=== PATIENT | male | born 1960 | race Caucasian/White ===

== ENCOUNTER → 2016-10-18 | Outpatient (CLI) | payer BC ==
--- NOTE | 2016-10-18 10:57 | US ---
EXAMINATION TYPE: US liver DATE OF EXAM: 10/18/2016 COMPARISON: NONE CLINICAL HISTORY: Other Specified disease of Liver K76.89. EXAM MEASUREMENTS: Liver Length: 14.9 cm Gallbladder Wall: 0.2 cm CBD: 0.4 cm Right Kidney: 10.9 x 3.9 x 5.2 cm Pancreas: visualized portions wnl Liver: difficult to penetrate Gallbladder: no stones seen Evidence for sonographic Betancourt's sign: No CBD: wnl Right Kidney: No hydronephrosis or masses seen Visualized liver is heterogeneously hyperechoic. No intrahepatic ductal dilatation is seen. Evaluatio n for focal masses is suboptimal due to the heterogeneity. IMPRESSION: Heterogeneous hyperechoic appearance of liver could reflect diffuse fatty infiltration, u nderlying hepatocellular disease is not excluded. Imaging guided random biopsy for tissue analysis ca n be performed if desired.
== END | disposition home or self-care (01) ==
LOC: RADUSWWP 10:18
PROVIDERS: ATTEND Family Medicine
DX: R93.2 Abnormal findings on diagnostic imaging of liver and biliary tract (principal); K76.89 Other specified diseases of liver
CPT/HCPCS: 76705

== ENCOUNTER 2016-12-14 18:47 | Emergency (ER) | payer BC ==
--- NOTE | 2016-12-14 20:49 | XR ---
EXAMINATION TYPE: XR soft tissue neck DATE OF EXAM: 12/14/2016 COMPARISON: NONE HISTORY: r/o foreign body TECHNIQUE: 2 views of the soft tissues of the neck are submitted. FINDINGS: The airway is patent. Normal appearing epiglottis. Retropharyngeal soft tissues are withi n normal limits. No evidence for radiopaque foreign body. IMPRESSION: Negative study
--- NOTE | 2016-12-14 21:06 | ED ---
General Adult HPI - General Chief complaint: ENT Stated complaint: FB IN THROAT (VITAMIN) Time Seen by Provider: 12/14/16 20:30 Source: patient, RN notes reviewed Mode of arrival: ambulatory Limitations: no limitations - History of Present Illness Initial comments: This is a 56-year-old male who presents to the emergency department today with chief complaint of feeling a foreign body in throat. Patient reports he took his medications this morning around 5 AM, one of them including a large multivitamin. Patient states he felt like the vitamin became lodged in his throat. On the way to work he stopped and got [employer] and was able to drink and eat as normal. Patient reports that throughout the day he felt like the vitamin was "moving around" in his throat. He has been able to eat and drink normally throughout the entire day. Denies fever, chills, chest pain, shortness of breath, abdominal pain, nausea, vomiting, dysuria, hematuria, numbess, tingling, headache or vision changes. - Related Data Allergies Allergy/AdvReac Type Severity Reaction Status Date / Time tetanus and diphtheria Allergy Unknown Verified 12/14/16 19:18 toxoids Review of Systems ROS Statement: Those systems with pertinent positive or pertinent negative responses have been documented in the HPI. ROS Other: All systems not noted in ROS Statement are negative. Past Medical History Past Medical History: Asthma, GERD/Reflux, Hypertension, Memory Impairment, Sleep Apnea/CPAP/BIPAP History of Any Multi-Drug Resistant Organisms: None Reported Past Surgical History: Orthopedic Surgery Additional Past Surgical History / Comment(s): right shoulder, left knee, uvula removed Past Psychological History: ADD/ADHD, Depression Smoking Status: Current some day smoker Past Alcohol Use History: None Reported Past Drug Use History: None Reported General Exam - General Exam Comments Initial Comments: General: Awake and alert, well-developed; in no apparent distress. HEENT: Head atraumatic, normocephalic. Pupils are equal, round and reactive to light. Extraocular movements intact. Oropharynx moist without erythema or exudate. No foreign body visualized in posterior pharynx. Uvula is surgically absent. Neck: Supple. Normal ROM. No adenopathy. Cardiovascular: Regular rate and rhythm. No murmurs, rubs or gallops. Chest symmetrical. Respiratory: Lungs clear to auscultation bilaterally. No wheezes, rales or rhonchi. Normal respiratory effort with no use of accessory muscles. Skin: [place], warm and dry without rashes or lesions. Neurological: Alert and oriented x3. CN II-XII grossly intact. Speech is fluent and answers are appropriate. No focal neuro deficits. Psychiatric: Normal mood and affect. No overt signs of depression or anxiety noted. Limitations: no limitations Course Vital Signs 12/14/16 12/14/16 19:14 21:39 Temperature 98 F 98.0 F Pulse Rate 87 82 Respiratory 20 18 Rate Blood Pressure 137/84 134/78 O2 Sat by Pulse 97 Oximetry Medical Decision Making - Medical Decision Making Neck soft tissue x-ray demonstrated normal retropharyngeal tissue, a patent airway, and no evidence of a radiopaque foreign body. This case was discussed with attending physician, Dr. Garcia who also evaluated patient. Patient will be discharged home with recommendation to follow up with GI tomorrow morning if feeling of foreign body does not resolve. Disposition Clinical Impression: Throat irritation Disposition: HOME SELF-CARE Condition: Good Instructions: Esophageal Foreign Body (ED) Additional Instructions: Please follow-up with your primary care provider within 1-2 days. If tomorrow morning you continue to feel unwell, please follow-up with Dr. Price, gastroenterology. Please return to the ED if any concerns arise. Referrals: Brayan Zapata DO [Primary Care Provider] - 1-2 days Booker Price MD [STAFF PHYSICIAN] - 1-2 days Time of Disposition: 21:21
[2016-12-14 21:41] VITALS: BP 134/78; PULSE 82; RESP 18; TEMP 98
== END 2016-12-14 21:25 | disposition home or self-care (01) ==
LOC: EC 18:47
DX: R09.89 Other specified symptoms and signs involving the circulatory and respiratory systems (principal); F17.200 Nicotine dependence, unspecified, uncomplicated; Z88.7 Allergy status to serum and vaccine; Z79.899 Other long term (current) drug therapy
CPT/HCPCS: 70360; 99283

== ENCOUNTER → 2019-03-20 | Outpatient (CLI) | payer BC ==
--- NOTE | 2019-03-20 13:30 | US ---
EXAMINATION TYPE: US venous doppler duplex LE DATE OF EXAM: 03/20/2019 12:37 PM COMPARISON: NONE CLINICAL HISTORY: R60.0 localized edema. SIDE PERFORMED: Bilateral TECHNIQUE: The lower extremity deep venous system is examined utilizing real time linear array sonog yusra with graded compression, doppler sonography and color-flow sonography. VESSELS IMAGED: External Iliac Vein (EIV) Common Femoral Vein Deep Femoral Vein Greater Saphenous Vein * Femoral Vein Popliteal Vein Small Saphenous Vein * Proximal Calf Veins (* superficial vessels) Right Leg: Negative for DVT Left Leg: Negative for DVT IMPRESSION: 1. Bilateral lower extremity ultrasound negative for deep venous thrombosis.
== END | disposition home or self-care (01) ==
LOC: RADUSWWP 11:56
PROVIDERS: ATTEND Family Medicine
DX: R60.0 Localized edema (principal)
CPT/HCPCS: 93970

== ENCOUNTER 2019-08-23 17:21 | Emergency (ER) | payer BC ==
[2019-08-23 17:51] VITALS: RESP 18; TEMP 98.1
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
--- NOTE | 2019-08-23 18:44 | XR ---
EXAMINATION TYPE: XR Hip Complete LT DATE OF EXAM: 08/23/2019 COMPARISON: NONE HISTORY: Pain TECHNIQUE: 2 views FINDINGS: Joint space is normal. There is some acetabular spurring. There is no evidence of a fractur e. Sacroiliac joint appears normal. IMPRESSION: No fracture seen.
[2019-08-23 19:00] VITALS: BP 142/86
[2019-08-23 19:10] LABS: Basophils # (A) 0.1 k/uL (0-0.2); Basophils % (A) 1 %; Eosinophils # (A) 0.6 k/uL (0-0.7); Eosinophils % (A) 6 %; HCT 41.6 % (39.0-53.0); HGB 13.4 gm/dL (13.0-17.5); Lymphocytes # (A) 2.6 k/uL (1.0-4.8); Lymphocytes % (A) 25 %; MCH 30.3 pg (25.0-35.0); MCHC 32.2 g/dL (31.0-37.0); MCV 94.1 fL (80.0-100.0); Mean Platelet Volume 8.8; Monocytes # (A) 0.4 k/uL (0-1.0); Monocytes % (A) 4 %; Neutrophils # (A) 6.7 k/uL (1.3-7.7); Neutrophils % (A) 63 %; Platelet Count 181 k/uL (150-450); RBC 4.42 m/uL (4.30-5.90); RDW 13.4 % (11.5-15.5); WBC 10.5 k/uL (3.8-10.6)
[2019-08-23 19:20] LABS: Potassium 4.6 mmol/L (3.5-5.1)
[2019-08-23 19:21] LABS: ALT 35 U/L (4-49); AST 74 U/L (17-59); African American GFR (CKD) >90 (>60 ml/min/1.73 sqM); Albumin 3.9 g/dL (3.5-5.0); Alkaline Phosphatase 80 U/L (38-126); Anion Gap 9 mmol/L; Blood Urea Nitrogen 18 mg/dL (9-20); Calcium 9.4 mg/dL (8.4-10.2); Carbon Dioxide 22 mmol/L (22-30); Chloride 107 mmol/L (98-107); Glucose 128 mg/dL (74-99); Non-African American GFR(CKD) >90 (>60 ml/min/1.73 sqM); Sodium 138 mmol/L (137-145); Total Bilirubin 0.6 mg/dL (0.2-1.3)
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
[2019-08-23 20:34] VITALS: PULSE 80
== END 2019-08-23 20:37 | disposition home or self-care (01) ==
LOC: EC 17:21
DX: S30.1XXA Contusion of abdominal wall, initial encounter (principal); M25.552 Pain in left hip; F17.200 Nicotine dependence, unspecified, uncomplicated; G47.30 Sleep apnea, unspecified; Z99.89 Dependence on other enabling machines and devices; Z88.7 Allergy status to serum and vaccine; V86.09XA Driver of other special all-terrain or other off-road motor vehicle injured in traffic accident, initial encounter; Y92.89 Other specified places as the place of occurrence of the external cause
CPT/HCPCS: 36415; 80053; 83605; 85025; 73502; 74177; 99284; Q9967

== ENCOUNTER 2019-10-28 08:37 | Day surgery (SDC) | payer BC ==
[~2019-10-28 08:37] MED LIST: LACTATED RINGERS 1,000 ML IV SCH
[2019-10-28 09:02] VITALS: TEMP 97.8
[2019-10-28] MEDS ORDERED: LIDOCAINE 1% (10MG/ML) FOR IV START INTRADERMA ONE (09:13)
[2019-10-28 09:16] LABS: Glucose,Whole Blood 133 mg/dL (75-99)
[2019-10-28] MEDS ORDERED: PROPOFOL 10 MG/ML 20 ML VIAL IV ONE (09:19)
--- NOTE | 2019-10-28 09:50 | P.PCN ---
Date of Procedure: 10/28/19 Description of Procedure: BRIEF HISTORY: Patient is a 59-year-old male presenting for colonoscopy for evaluation of irritable bowel syndrome and change in bowel habits with colonoscopy. Reports 5 years of symptoms of frequency, urgency. Denies any blood per rectum. PROCEDURE PERFORMED: Colonoscopy with polypectomy and biopsy. PREOPERATIVE DIAGNOSIS: Irritable bowel syndrome, change in bowel habits. ESTIMATED BLOOD LOSS: Minimal. IV sedation per Anesthesia. PROCEDURE: After informed consent was obtained, the patient, was brought into the endoscopy unit. IV sedation was administered by Anesthesia under continuous monitoring. Digital rectal examination was normal. Initially the Olympus CF-190 flexible video colonoscope was then inserted in the rectum, gradually advanced into the cecum without any difficulty. Careful examination was performed as the scope was gradually being withdrawn. Ileocecal valve and the appendiceal orifice were visualized and appeared normal. Prep was excellent. Mucosa of the cecum, ascending colon, transverse colon, descending colon, sigmoid colon, and rectum appeared normal, with biopsies of the right and left colon taken in the setting of altered bowel function and diarrhea. Terminal ileum was intubated and appeared normal with biopsies taken. Diminutive 2 mm transverse colon polyp removed with cold forcep polypectomy. A few small scattered diverticula noted in the sigmoid colon. Retroflexion was performed in the rectum and no lesions were seen. The patient tolerated the procedure well. IMPRESSION: Mild sigmoid diverticulosis. Diminutive transverse colon polyp removed with cold forcep polypectomy. Normal-appearing colon from rectum to cecal with normal. Terminal ileum and random biopsies taken of the terminal ileum, right colon and left colon the setting of change in bowel habits and diarrhea.. RECOMMENDATIONS: Findings of this examination were discussed with the patient. Okay to resume diet. Okay to resume medications. Await pathology from biopsies and polypectomy. Would recommend repeat colonoscopy in 7 years or sooner if signs or symptoms which warrant further evaluation developed.
[2019-10-28 10:28] VITALS: BP 102/61; PULSE 72; RESP 20
== END 2019-10-28 10:28 | disposition home or self-care (01) ==
LOC: ORWHC2ENDO 08:37
PROVIDERS: ATTEND Internal Medicine
DX: D12.3 Benign neoplasm of transverse colon (principal); K57.30 Diverticulosis of large intestine without perforation or abscess without bleeding; K62.89 Other specified diseases of anus and rectum; K58.0 Irritable bowel syndrome with diarrhea; I10 Essential (primary) hypertension; E78.5 Hyperlipidemia, unspecified; J44.9 Chronic obstructive pulmonary disease, unspecified; G47.33 Obstructive sleep apnea (adult) (pediatric); E11.9 Type 2 diabetes mellitus without complications; K21.9 Gastro-esophageal reflux disease without esophagitis; E66.01 Morbid (severe) obesity due to excess calories; Z87.891 Personal history of nicotine dependence; Z88.7 Allergy status to serum and vaccine; Z79.84 Long term (current) use of oral hypoglycemic drugs; Z79.899 Other long term (current) drug therapy; Z98.890 Other specified postprocedural states; Z68.37 Body mass index [BMI] 37.0-37.9, adult
CPT/HCPCS: 88305; 45380; J2704

== ENCOUNTER → 2019-11-27 | Outpatient (CLI) | payer BC ==
--- NOTE | 2019-11-27 13:35 | US ---
LOWER EXTREMITY VENOUS INSUFFICIENCY CLINICAL HISTORY: I87.2 venous insuffieciency. Calf pain SIDE PERFORMED: Bilateral 1) Color flow is present and patency is documented in the following vessels. No DVT or SVT is noted . EIV Common Femoral Vein Deep Femoral Vein Femoral Vein Popliteal Vein Proximal Calf Veins Greater Saph Vein Upper Small Saph Vein 2) There is venous reflux noted at the following venous levels: None IMPRESSION: 1. No suspicious venous reflux noted lower extremity ultrasound evaluation
== END | disposition home or self-care (01) ==
LOC: RADUSWWP 12:37
PROVIDERS: ATTEND Family Medicine
DX: I87.2 Venous insufficiency (chronic) (peripheral) (principal)
CPT/HCPCS: 93970

== ENCOUNTER → 2021-04-02 | Outpatient (CLI) | payer BC ==
--- NOTE | 2021-04-02 14:52 | CT ---
EXAMINATION TYPE: CT angio chest DATE OF EXAM: 04/02/2021 COMPARISON: NONE HISTORY: chest pain, SOB CT DLP: 583.9 mGycm. Automated Exposure Control for Dose Reduction was Utilized. CONTRAST: CTA scan of the thorax is performed with IV Contrast, patient injected with 75cc mL of Isovue 370, pu lmonary embolism protocol. MIP Images are created on CT scanner and reviewed. FINDINGS: LUNGS: The lungs are grossly clear, there is no concerning parenchymal mass or nodule identified. T here is no pleural effusion or pneumothorax seen. The tracheobronchial tree is patent. MEDIASTINUM: There is poor contrast bolus with most dense contrast in the SVC. No central pulmonary e mbolism. Smaller segmental and subsegmental PE not entirely excluded. Some contrast opacification of the thoracic aorta without aneurysm or dissection. Coronary artery calcification is present which is noted marker for underlying coronary artery disease. There are no greater than 1 cm hilar or mediast inal lymph nodes. No cardiomegaly or pericardial effusion is seen. OTHER: Liver appears to have some lobulated peripheral contour with some prominence of visualized por tion of the spleen raising concern for underlying cirrhosis, correlate clinically. IMPRESSION: Suboptimal study without central pulmonary embolism. No suspicious acute pulmonary proces s.
== END | disposition home or self-care (01) ==
LOC: RADCTMAIN 12:51
PROVIDERS: ATTEND Family Medicine
DX: R07.89 Other chest pain (principal); R06.02 Shortness of breath
CPT/HCPCS: 82565; 84520; 71275; 36415; Q9967

== ENCOUNTER → 2024-09-03 | Outpatient (CLI) | payer BC ==
--- NOTE | 2024-09-03 15:29 | CTL ---
EXAMINATION TYPE: CT Low Dose Lung DATE OF EXAM ORDERED: 09/03/2024 COMPARISON: CTA chest 04/02/2021 CLINICAL INDICATION: Male, 64 years old with history of Z12.2 Z87.891; PHH, History of smoking, Lung cancer screening, History of Smoking/tobacco use. TECHNIQUE: Low dose computed tomography scan was performed through the chest at 1 mm thick sections a nd reconstructed images in multiple planes at 1 mm and [address] DLP: 162..[address] CTDI: 3.9 mGy Automated exposure control for dose reduction was used. CT DIAGNOSTIC QUALITY: Satisfactory FINDINGS: Nodules: Stable anterior right midlung 2.6 mm solid pulmonary nodule (series 6, image 37). No new or enlarging pulmonary nodules. LUNGS: COPD: Severity: None Fibrosis: Severity: None Lymph nodes: None Other findings: Minimal bilateral lower lobe linear/subsegmental atelectasis. RIGHT PLEURAL SPACE: Effusion: None Calcification: None Thickening: None Pneumothorax: None LEFT PLEURAL SPACE: Effusion: None Calcification: None Thickening: None Pneumothorax: None HEART: Heart Size: Normal Coronary Calcification: Small Pericardial Effusion: None OTHER FINDINGS: Upper abdomen: Splenic calcified granuloma. Bony thorax: None Supraclavicular region: None Other: None IMPRESSION: Stable anterior right midlung 2.6 mm solid pulmonary nodule. Consider benign due to stabi lity from 2021. No new or enlarging pulmonary nodules. CT LUNG RAD AND CT CHEST RECOMMENDATION: Lung-Rad 2 Benign Appearance or Behavior: Continue annual sc reening with LDCT in 12 months. S Modifier (other clinically significant findings): None [facility], , 09/03/2024 3:26 PM
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
== END | disposition home or self-care (01) ==
LOC: RADUSWWP 14:00
PROVIDERS: ATTEND Family Medicine
DX: Z12.2 Encounter for screening for malignant neoplasm of respiratory organs (principal); R35.0 Frequency of micturition; R91.1 Solitary pulmonary nodule; Z87.891 Personal history of nicotine dependence
CPT/HCPCS: 71271; 76857